=== PATIENT | female | born 1985 | race Caucasian/White ===

== ENCOUNTER → 2021-03-28 | Day surgery (SDC) | payer OTHER ==
[~2021-03-28] MED LIST: EXCEDRIN CAPLE1 EACH PO
[2021-03-28 11:09] LABS: HEMATOCRIT 39.4 % (37.0-47.0); HEMOGLOBIN 13.2 gm/dL (12.0-15.0); MCH 30.8 pg (26.0-34.0); MCHC 33.5 g/dL (28.0-37.0); MCV 92.2 fL (80.0-100.0); MPV 6.9 fl. (7.2-11.1); RBC 4.28 mil/uL (4.20-5.00); RDW-CV 13.5 % (10.5-14.5); WBC 7.8 thou/uL (4.0-11.0)
--- NOTE | 2021-03-28 14:54 | OP ---
[address] [address] OPERATIVE REPORT Name: OTF MOODY Room: [facility] Pastor#: [id number] Admission: 03/28/21 Attend Phys: Gina Dunlap DO Discharge: Date of : 81 Report #: [id number] THIS REPORT FOR: cc: Maegan Bell Mallory PA Brock, Christie M. DO ~ DATE OF SURGERY: 03/28/2021 PREOPERATIVE DIAGNOSIS: Left breast recurring abscess with cyst formation. POSTOPERATIVE DIAGNOSIS: Left breast recurring abscess with cyst formation. FINDINGS: Two areas on the lower inner left breast with scarring from recurrent abscesses and possible cyst. SURGEON: Gina Dunlap DO CO-SURGEON: Brent Shaw, PGY-2. DRAWER LINER: MS Shelley-3. PROCEDURE PERFORMED: Left breast excision of mass. ANESTHESIA: LMA and local. ESTIMATED BLOOD LOSS: 3 mL. DRAINS: None. SPECIMENS: Left breast mass. COMPLICATIONS: None. CONDITION: Stable. DISPOSITION: PACU to home. HISTORY OF PRESENT ILLNESS: The patient is a karly 35-year-old female who presented to my office with complaint of the recurring abscesses in the left lower inner breast. On physical exam, she had 2 obvious areas of scarring and possible cyst formation. She was then consented for excision of these areas. Risks and benefits were discussed in detail. The patient agreed to proceed. DESCRIPTION OF PROCEDURE: The patient was brought to the operating room. She was laid supine on the operating table. SCDs were placed on bilateral lower extremities. Ancef was given in the perioperative [place] [address] OPERATIVE REPORT Name: OTF MOODY Room: [facility].#: [id number] Admission: 03/28/21 Attend Phys: Gina Dunlap DO Discharge: Date of : 81 Report #: [id number] anesthesia was induced by Anesthesia without difficulty. Left breast was prepped and draped in the standard sterile fashion. Time-out was performed to verify the patient and procedure. The 2 areas were marked out with an elliptical incision; 10 mL of 0.5% Marcaine were injected in the area of the planned incision. Incision was made with a #15 blade. Cautery was used for hemostasis. Cautery was used to excise the area in its entirety. It was handed off for permanent pathology. Hemostasis was assured. Wound was closed in a layered fashion using deep and superficial stitches of 3-0 Vicryl in an inverted interrupted fashion. Skin wound was closed with a running 4-0 Monocryl. A total of 30 mL of 0.5% Marcaine were used to anesthetize the wound. Wound was then cleansed and covered with Dermabond. The patient was then allowed to awaken from anesthesia, was extubated and transported to the recovery room with no further difficulties. Counts were correct x 2 at the conclusion of the case. <ELECTRONICALLY SIGNED> By: Gina Dunlap DO 03/28/21 1454 1129 1148Chmark Dunlap DO /nt
--- NOTE | 2021-04-01 17:06 | PATH ---
[address] [address] PATHOLOGY RPT PROCEDURE Name: OTF MOODY BEATRIZ Room: [facility] Pastor#: [id number] Admission: 03/28/21 Date of : 81 Discharge: Report #: [id number] Path Case #: [id number] [facility] Accession Number: [id number] . 01 Material submitted: . breast - LEFT BREAST MASS. Modifiers: left . 01 Clinical history: . DS/03/28/21 EXCISION CYST . BREAST CYST COLLECTED 1215 FORMALIN 1215 . 02 Diagnosis: Left breast mass: - Benign skin with dermal chronic and foreign body type granulomatous inflammation. (MARIA LUISA:chiki; 04/01/2021) MBR 04/01/2021 1544 Local . 02 Electronically signed: . Zeyad Basilio MD, Pathologist NPI- [id number] . 01 Gross description: . The specimen is received in formalin, labeled "Otf Moody, left breast mass". Received is an ellipse of pale hayden skin with attached bright yellow lobulated tissue measuring 3.8 x 1.0 x 1.0 cm in greatest dimensions, weighing 2 g. The surgical margin is inked. Sectioning reveals pale hayden to bright yellow cut surfaces with no grossly distinct nodules or lesions. The specimen is serially sectioned and entirely submitted in cassettes A1 through A4. The cold ischemic time is less than 1 minute. The total formalin fixation time is 28 hours and 35 minutes. (CAA; 03/29/2021) QAC/QAC 03/29/2021 1015 Local . 02 Pathologist provided ICD-10: L08.9 . 02 CPT . 942070 Specimen Comment: A courtesy copy of this report has been sent to [phone], [phone] Specimen Comment: 1976 Specimen Comment: Report sent to / DR MARIE Performed at: 01 [place] [address] PATHOLOGY RPT PROCEDURE Name: OTF OMODY INELBianca [id number] Admission: 03/28/21 Date of : 81 Discharge: Report #: [id number] Path Case #: [id number] [address] [facility] [address], [place], [place] [id number] MD Teodoro Adame MD Phone: [phone] Performed at: 02 [facility] [address], [place], [place] [id number] MD Zeyad Basilio MD Phone: [phone]
== END | disposition home or self-care (01) ==
LOC: M.SUR 09:31
PROVIDERS: Anesthesiology; ATTEND Surgery
DX: L08.9 Local infection of the skin and subcutaneous tissue, unspecified (principal); N61.1 Abscess of the breast and nipple; Z20.822 Contact with and (suspected) exposure to COVID-19